=== PATIENT | female | born 2000 | race Two or more races ===

== ENCOUNTER 2024-03-25 15:10 | Emergency (ER) | payer OTHER ==
[~2024-03-25] VITALS: Ht 160 cm; Wt 67.1 kg
[~2024-03-25 15:10] MED LIST: PRENATAL; PROGESTERONA
[2024-03-25] MEDS ORDERED: ACETAMINOPHEN 500 MG GEL..CAP PO ONE ×2 (16:30)
[2024-03-25 16:44] LABS: HEMATOCRIT 34.8 % (36.0-45.00); HEMOGLOBIN 12.2 g/dL (12.0-15.00); PLATELET COUNT 186 K/uL (150-450); RED BLOOD COUNT 3.48 M/uL (4.00-6.00); RED CELL DISTRIBUTION WIDTH 13.5 % (11.5-14.5)
[2024-03-25 17:11] LABS: URINE APPEARANCE Cloudy; URINE BILIRRUBIN Negative (NEGATIVE); URINE BLOOD Negative; URINE COLOR Yellow; URINE GLUCOSE Negative (NEGATIVE); URINE KETONE Negative (NEGATIVE); URINE LEUKOCYTE Moderate; URINE NITRATE Negative; URINE PROTEIN Negative (NEGATIVE)
[2024-03-25 17:15] LABS: URINE BACTERIA 4828.1 uL (0.0-1933); URINE EPITHELIAL CELLS 94.4 uL (0.0-38.8); URINE RBC 4.5 uL (0.0-20.8); URINE WBC 173.1 uL (0.0-23.2)
[2024-03-25 17:38] LABS: ALBUMIN 3.2 gm/dL (3.4-5.0); BILIRUBIN TOTAL 0.63 mg/dL (0.3-1.2); CREATININE SERUM 0.6 mg/dL (0.55-1.02); GFR 122.82; GLOBULINA 3.8 G/DL (2.4-3.5); POTASSIUM 4.32 mEq/L (3.5-5.1)
[2024-03-25] MEDS ORDERED: MACRODANTIN100 M1 PO (18:52)
== END 2024-03-25 19:06 | disposition home or self-care (01) ==
LOC: ER 15:10
PROVIDERS: General Practice
DX: N39.0 Urinary tract infection, site not specified (principal); R07.9 Chest pain, unspecified

== ENCOUNTER 2024-05-30 16:27 | Inpatient (IN) | payer OTHER ==
[~2024-05-30] VITALS: Ht 160 cm; Wt 71.7 kg
[2024-05-30 16:15] VITALS: BP 106/69
[~2024-05-30 16:27] MED LIST changes: +MACRODANTIN100 M1 PO
[2024-05-30] MEDS ORDERED: PRENATAL TABLE1 EAC1 (16:29)
[2024-05-30] MEDS ORDERED: MAGNESIUM SULFATE IN WATER 500 ML IV SCH (17:00)
[2024-05-30] MEDS ORDERED: MAGNESIUM SULFATE IN WATER 4 GM/100 ML PIGGYBACK IV SCH (17:00)
[2024-05-30] MEDS ORDERED: RINGERS SOLUTION,LACTATED 1,000 ML IV SCH (17:00)
[2024-05-30] MEDS ORDERED: BETAMETHASONE ACETATE,SOD PHOS 30 MG/5 ML ML IM SCH (17:00)
[2024-05-30 17:21] LABS: HEMATOCRIT 36.9 % (36.0-45.00); MEAN CELL VOLUME 99.9 fL (80.00-100.00); MEAN CORPUSCULAR HEMOGLOBIN 35.1 pg (27.00-32.0); MEAN CORPUSCULAR HGB CONC 35.2 g/dl (32.0-36.0); PLATELET COUNT 144 K/uL (150-450); RED BLOOD COUNT 3.69 M/uL (4.00-6.00); RED CELL DISTRIBUTION WIDTH 12.9 % (11.5-14.5)
[2024-05-30 17:22] LABS: URINE APPEARANCE Clear; URINE BILIRRUBIN Negative (NEGATIVE); URINE BLOOD Negative; URINE COLOR Yellow; URINE GLUCOSE Negative (NEGATIVE); URINE KETONE Negative (NEGATIVE); URINE LEUKOCYTE Negative; URINE NITRATE Negative; URINE PROTEIN Negative (NEGATIVE)
[2024-05-30 17:25] LABS: URINE BACTERIA 21.4 uL (0.0-1933); URINE EPITHELIAL CELLS 6.1 uL (0.0-38.8); URINE WBC 3.2 uL (0.0-23.2)
[2024-05-30 17:49] LABS: URINE RBC 0.6 uL (0.0-20.8)
[2024-05-30 17:58] LABS: INR < 0.93; PARTIAL THROMBOPLASTIN TIME 34.3 SECONDS (22.0-34.0); PROTHROMBIN TIME 10.2 SECONDS (9.0-11.5)
[2024-05-30 18:02] LABS: ALBUMIN 3.1 gm/dL (3.4-5.0); BILIRUBIN TOTAL 0.58 mg/dL (0.3-1.2); CALCIUM 9.1 mg/dL (8.5-10.1); CREATININE SERUM 0.63 mg/dL (0.55-1.02); GFR 116.1; GLOBULINA 3.9 G/DL (2.4-3.5); POTASSIUM 3.87 mEq/L (3.5-5.1)
[2024-05-30 19:00] VITALS: BP 104/64
[2024-05-30 19:20] VITALS: BP 124/85
[2024-05-30 23:22] VITALS: BP 94/58
[2024-05-31 04:00] VITALS: BP 110/63
[2024-05-31 07:09] VITALS: BP 112/68; O2SAT 99
[2024-05-31] MEDS ORDERED: NIFEDIPINE 30 MG TAB.SA.OSM PO SCH (09:00)
[2024-05-31 12:34] VITALS: BP 110/73
[2024-05-31 16:00] VITALS: BP 104/60
[2024-05-31] MEDS ORDERED: BETAMETHASONE ACETATE,SOD PHOS 30 MG/5 ML ML IM SCH (17:00)
[2024-05-31 20:00] VITALS: BP 99/60
[2024-06-01] VITALS: BP 93/53
[2024-06-01 08:54] VITALS: BP 104/50
[2024-06-01 09:03] VITALS: BP 104/50
== END 2024-06-01 10:05 | disposition home or self-care (01) | DRG 833 ==
LOC: LDR 16:27 → OB/GYN 05-31 08:55
PROVIDERS: ADMIT Obstetrics & Gynecology; ATTEND Obstetrics & Gynecology
PROC: 4A1HXCZ Monitoring of Products of Conception, Cardiac Rate, External Approach (ICD-10-PCS; principal; 2024-05-30)
DX: O60.03 Preterm labor without delivery, third trimester (principal); Z3A.30 30 weeks gestation of pregnancy; Z20.822 Contact with and (suspected) exposure to COVID-19

== ENCOUNTER 2024-06-16 11:53 | Outpatient (CLI) | payer OTHER ==
[~2024-06-16] VITALS: Ht 160 cm; Wt 71.2 kg
[2024-06-16 11:14] VITALS: BP 103/70
[~2024-06-16 11:53] MED LIST changes: +PRENATAL TABLE1 EAC1
[2024-06-16] MEDS ORDERED: NIFEDIPINE10 MG PO (12:12)
[2024-06-16 13:48] VITALS: BP 103/70
== END 2024-06-16 14:00 | disposition home or self-care (01) ==
LOC: OBS/DEL 11:53
PROVIDERS: ATTEND Obstetrics & Gynecology Maternal & Fetal Medicine
DX: O26.893 Other specified pregnancy related conditions, third trimester (principal); R10.2 Pelvic and perineal pain; Z3A.32 32 weeks gestation of pregnancy

== ENCOUNTER 2024-07-21 14:15 | Inpatient (IN) | payer OTHER ==
[~2024-07-21] VITALS: Ht 160 cm; Wt 73.9 kg
[~2024-07-21 14:15] MED LIST changes: +NIFEDIPINE10 MG PO
[2024-07-26] VITALS (9 sets, daily range): BP systolic 116–126; BP diastolic 55–85
[2024-07-26] MEDS ORDERED: RINGERS SOLUTION,LACTATED 1,000 ML IV SCH (03:30)
[2024-07-26] MEDS ORDERED: MORPHINE SULFATE 4 MG/ML CARTRIDGE IV PRN (03:30)
[2024-07-26 03:42] LABS: HEMATOCRIT 36.4 % (36.0-45.00); HEMOGLOBIN 12.4 g/dL (12.0-15.00); MEAN CELL VOLUME 99.9 fL (80.00-100.00); MEAN CORPUSCULAR HEMOGLOBIN 34.1 pg (27.00-32.0); MEAN CORPUSCULAR HGB CONC 34.1 g/dl (32.0-36.0); RED BLOOD COUNT 3.64 M/uL (4.00-6.00); RED CELL DISTRIBUTION WIDTH 13.5 % (11.5-14.5)
[2024-07-26 03:44] LABS: PLATELET COUNT 126 K/uL (150-450)
[2024-07-26] MEDS ORDERED: AMPICILLIN SODIUM 2,000 MG VIAL IV ONE (03:45)
[2024-07-26 04:01] LABS: INR 0.94; PARTIAL THROMBOPLASTIN TIME 29.9 SECONDS (22.0-34.0); PROTHROMBIN TIME 10.3 SECONDS (9.0-11.5)
[2024-07-26] MEDS ORDERED: PROMETHAZINE HCL 25 MG/ML AMPUL IV ONE (06:00)
[2024-07-26] MEDS ORDERED: MEPERIDINE HCL 25 MG/ML AMPUL IV ONE (06:00)
[2024-07-26] MEDS ORDERED: OXYTOCIN 500 ML IV SCH (06:00)
[2024-07-26] MEDS ORDERED: AMPICILLIN SODIUM 1,000 MG VIAL IV SCH (08:00)
[2024-07-26] MEDS ORDERED: CARBOPROST TROMETHAMINE 250 MCG/ML AMPUL IM STA (16:35)
[2024-07-26] MEDS ORDERED: OxyCODONE HCL/APAP UD (PERCOCET) PO PRN (16:45)
[2024-07-26] MEDS ORDERED: IBUprofen 400 MG TABLET PO PRN (16:45)
[2024-07-27 01:47] VITALS: BP 122/73
[2024-07-27] MEDS ORDERED: CARBOPROST TROMETHAMINE 250 MCG/ML AMPUL IM STA (02:20)
[2024-07-27] MEDS ORDERED: METHYLERGONOVINE MALEATE 0.2 MG/ML AMPUL IM STA (02:21)
[2024-07-27] MEDS ORDERED: ERYTHROMYCIN BASE OPHT 1GM EACH TUBE OP ONE (02:30)
[2024-07-27] MEDS ORDERED: LIDOCAINE HCL 1% 10ML VIAL PERCUT ONE (02:30)
[2024-07-27] MEDS ORDERED: CHLORHEXIDINE GLUCONATE 120 ML BOTTLE TOP ONE (02:30)
[2024-07-27] MEDS ORDERED: OXYTOCIN 1,000 ML IV SCH (02:30)
[2024-07-27 02:46] VITALS: BP 96/61
[2024-07-27 09:59] VITALS: BP 101/65
[2024-07-27 16:11] VITALS: BP 100/65
[2024-07-28 01:16] VITALS: BP 107/69
[2024-07-28 12:53] VITALS: BP 99/66
== END 2024-07-28 12:24 | disposition home or self-care (01) | DRG 807 ==
LOC: LDR 07-26 03:05 → OB/GYN 07-26 22:05 → LDR 08-05 14:15
PROVIDERS: Obstetrics & Gynecology Gynecology; ADMIT Obstetrics & Gynecology Maternal & Fetal Medicine; ATTEND Obstetrics & Gynecology Maternal & Fetal Medicine
PROC: 10E0XZZ Delivery of Products of Conception, External Approach (ICD-10-PCS; principal; 2024-07-26)
PROC: 0W8NXZZ Division of Female Perineum, External Approach (ICD-10-PCS; 2024-07-26)
PROC: 4A1HXCZ Monitoring of Products of Conception, Cardiac Rate, External Approach (ICD-10-PCS; 2024-07-26)
DX: O80 Encounter for full-term uncomplicated delivery (principal); Z37.0 Single live birth; Z3A.38 38 weeks gestation of pregnancy; Z20.822 Contact with and (suspected) exposure to COVID-19